=== PATIENT | male | born 1980 | race African-American/Black ===

== ENCOUNTER 2021-08-17 18:30 | Emergency (ER) | payer SELFPAY ==
[~2021-08-17] VITALS: Ht 177.8 cm; Wt 95.0 kg
[2021-08-17] MEDS ORDERED: ONDANSETRON PF 4 MG/2 ML VIAL. IVP ONE (18:45)
[2021-08-17] MEDS ORDERED: IV NORMAL SALINE 1,000ML 1,000 ML IV ONE (18:45)
--- NOTE | 2021-08-17 18:48 | PHYS DOC ---
Past History Additional Past Medical Histor: Gastritis Past Surgical History: No Surgical History General Adult EDM: Chief Complaint: FLANK PAIN HPI: HPI: Patient is a 40-year-old male who presents to the emergency department for right upper quadrant pain that radiates to his right flank that started 5 days ago. Patient rates his pain 10 out of 10. He reports taking a [employer] prior to arrival without relief in his symptoms. Patient reports nausea and vomiting. He denies diarrhea, fevers, dysuria or urinary symptoms. Patient has a history of gastritis. Review of Systems: Review of Systems: Constitutional: See HPI Respiratory: Denies shortness of breath Cardiovascular: Denies chest pain GI: See HPI : See HPI Musculoskeletal: See HPI Physical Exam: PE: Constitutional: Well developed, well nourished, no acute distress, non-toxic appearance. [] HENT: Normocephalic, atraumatic, bilateral external ears normal, oropharynx moist, no oral exudates, nose normal. [] Eyes: PERRL, EOMI, conjunctiva normal, no discharge. [] Neck: Normal range of motion, no tenderness, supple, no stridor. [] Cardiovascular:Heart rate regular rhythm, no murmur [] Lungs & Thorax: Bilateral breath sounds clear to auscultation [] Abdomen: Bowel sounds normal, soft, right upper quadrant tenderness with palpation, no abdominal guarding or rigidity,, no masses, no pulsatile masses. [] Skin: Warm, dry, no erythema, no rash. [] Back: No tenderness, right CVA tenderness Extremities: No tenderness, no cyanosis, no clubbing, ROM intact, no edema. [] Neurologic: Alert and oriented X 3, normal motor function, normal sensory function, no focal deficits noted. [] Psychologic: Affect normal, judgement normal, mood normal. [] Current Patient Data: Labs: Laboratory Tests Test 08/17/21 18:45 08/17/21 18:55 Urine Collection Type Void Urine Color Yellow Urine Clarity Clear Urine pH 6.5 Urine Specific Peck >=1.030 Urine Protein Neg Urine Glucose (UA) Neg mg/dL Urine Ketones (Stick) Neg mg/dL Urine Blood Neg Urine Nitrite Neg Urine Bilirubin Neg Urine Urobilinogen Dipstick 0.2 mg/dL Urine Leukocyte Esterase Neg Urine RBC Occ /HPF Urine WBC Occ /HPF Urine Squamous Epithelial Cells Occ /LPF Urine Bacteria 0 /HPF Urine Mucus Marked /LPF White Blood Count 13.2 x10^3/uL Red Blood Count 5.18 x10^6/uL Hemoglobin 15.5 g/dL Hematocrit 46.8 % Mean Corpuscular Volume 90 fL Mean Corpuscular Hemoglobin 30 pg Mean Corpuscular Hemoglobin Concent 33 g/dL Red Cell Distribution Width 15.5 % Platelet Count 488 x10^3/uL Neutrophils (%) (Auto) 67 % Lymphocytes (%) (Auto) 22 % Monocytes (%) (Auto) 7 % Eosinophils (%) (Auto) 3 % Basophils (%) (Auto) 1 % Neutrophils # (Auto) 8.9 x10^3uL Lymphocytes # (Auto) 3.0 x10^3/uL Monocytes # (Auto) 0.9 x10^3/uL Eosinophils # (Auto) 0.4 x10^3/uL Basophils # (Auto) 0.1 x10^3/uL Sodium Level 139 mmol/L Potassium Level 3.9 mmol/L Chloride Level 102 mmol/L Carbon Dioxide Level 27 mmol/L Anion Gap 10 Blood Urea Nitrogen 11 mg/dL Creatinine 0.9 mg/dL Estimated GFR (Cockcroft-Gault) 113.7 BUN/Creatinine Ratio 12 Glucose Level 91 mg/dL Calcium Level 8.9 mg/dL Total Bilirubin 0.3 mg/dL Aspartate Amino Transf (AST/SGOT) 16 U/L Alanine Aminotransferase (ALT/SGPT) 40 U/L Alkaline Phosphatase 98 U/L Total Protein 7.6 g/dL Albumin 3.5 g/dL Albumin/Globulin Ratio 0.9 Lipase 141 U/L Current Medications Medications (Trade) Dose Ordered Sig/Liam Route PRN Reason Start Time Stop Time Status Last Admin Dose Admin Sodium Chloride 1,000 ml @ 1,000 mls/hr 1X ONCE IV 08/17/21 18:45 08/17/21 19:44 DC 08/17/21 19:06 Ondansetron HCl (Zofran) 4 mg 1X ONCE IVP 08/17/21 18:45 08/17/21 19:05 DC 08/17/21 19:07 Fentanyl Citrate (Fentanyl 2ml Vial) 50 mcg 1X ONCE IVP 08/17/21 18:45 08/17/21 19:05 DC 08/17/21 19:09 Multi-Ingredient Mouthwash/Gargle (Gi Cocktail) 20 ml 1X ONCE PO 08/17/21 20:00 08/17/21 20:01 EKG: EKG: [] Radiology/Procedures: Radiology/Procedures: []PROCEDURE: CT ABDOMEN PELVIS WO CONTRAST Exam: CT of abdomen and pelvis without contrast INDICATION: Right upper quadrant pain, flank pain TECHNIQUE: Sequential axial images through the abdomen and pelvis obtained without IV contrast. Sagittal and coronal reformatted images were reconstructed from the axial data and reviewed. Exposure: One or more of the following in the visualized dose reduction techniques were utilized for this examination: 1. Automated exposure control 2. Adjustment of the MA and/or KV according to patient size 3. Use of iterative of reconstructive technique Comparisons: None FINDINGS: Heart size is normal. No pericardial effusion. Visualized lung bases are clear. No pleural effusion. Evaluation solid organs is limited secondary noncontrast technique. Liver, spleen, pancreas, gallbladder and adrenals are unremarkable. No perinephric inflammation or hydronephrosis. No renal or ureteral calculi are identified. Bladder is decompressed not well evaluated. Prostate is not enlarged. Moderate amount stool in colon. Appendix is normal. Small bowel is unremarkable. No free intra-abdominal air or fluid. No obstruction. Abdominal aorta has normal course and caliber. No enlarged intra-abdominal lymph nodes are identified. No suspicious osseous lesions or acute fractures. IMPRESSION: No acute process identified in the abdomen or pelvis. 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 Risk Scores: Score 0 - 3: 2.5% MACE over next 6 weeks - Discharge Home Score 4 - 6: 20.3% MACE over next 6 weeks - Admit for Clinical Observation Score 7 - 10: 72.7% MACE over next 6 weeks - Early Invasive Strategies Course & Med Decision Making: Course & Med Decision Making Pertinent Labs and Imaging studies reviewed. (See chart for details) [] Patient presents to the emergency department for right upper quadrant pain that radiates to his right flank with nausea. Patient's work-up included blood work including lipase, urinalysis and CT imaging of abdomen and pelvis without contrast due to national shortage. Patient will be treated with IV fluids, nausea and pain medication. Patient's noted to have mild leukocytosis of 13.2 but likely due to nausea and vomiting. Remainder patient's lab work is unremarkable., Urinalysis was unremarkable. CT imaging did not show any acute findings. Patient reports impr ovement in his symptoms following pain medication. He was given GI cocktail as he is likely experiencing an exacerbation of his gastritis. Patient's blood pressure is elevated in the emergency department and at 1 time it was 218/120. No Evidence of endorgan damage. Patient does not have any chest pain or shortness of breath. Patient states that he is on Zestril but has not taken it in a long time. And he recently moved to the area and does not have a primary care provider. Discussed with supervising physician and Patient is given clonidine. Following treatment in the emergency department patient's blood pressure has improved to 169/114. patient was given community resources for For which he can follow-up with. Patient's home medications refilled. He will be discharged home with Pepcid. I discussed with patient all findings and diagnostic testing as well as the need to follow-up with PCP for further evaluation and treatment or return to the ER if any new or worsening symptoms. Strict return precautions were also discussed at length. Patient voiced understanding and agreement with the plan. Patient is hemodynamically stable at the time of disposition. Miya Disclaimer: Miya Disclaimer: This electronic medical record was generated, in whole or in part, using a voice recognition dictation system. Departure Departure: Impression: Primary Impression: Gastritis Qualified Codes: K29.00 - Acute gastritis without bleeding Additional Impression: Hypertension Qualified Codes: I10 - Essential (primary) hypertension Disposition: HOME / SELF CARE / HOMELESS Condition: GOOD Patient Instructions: Gastritis, Adult, Hypertension Additional Instructions: You were seen in the emergency department today for nausea, vomiting and abdominal pain. You are likely experiencing an exacerbation of your gastritis. You are being discharged home with an antacid medication called Pepcid to take. Please avoid any foods that may exacerbate your gastritis. You are also being discharged home with your home hypertensive medications. Please take them as directed. Please follow-up with one of the primary care providers attached to your discharge paperwork. I would advise you to contact them tomorrow to set up a follow-up appointment. Return to the emergency department if you develop chest pain, shortness of breath, high fevers refractory to treatment, abdominal pain, intractable nausea or vomiting, bloody stools or vomit. Scripts Lisinopril (ZESTRIL) 5 Mg Tablet 1 TAB PO DAILY for hypertension for 30 Days, #30 TAB 0 Refills Prov: JOLIE SOLORIO APRN 08/17/21 Famotidine (PEPCID) 20 Mg Tablet 20 MG PO BID for dyspepsia for 7 Days, #14 TAB 0 Refills Prov: JOLIE SOLORIO APRN 08/17/21 JOLIE SOLORIO APRN August 17, 2021 18:48
[2021-08-17 19:28] LABS: BASO # 0.1 x10^3/uL (0.0-0.2); BASO % 1 % (0-3); EOS # 0.4 x10^3/uL (0.0-0.7); EOS % 3 % (0-3); HEMATOCRIT 46.8 % (39.0-53.0); HEMOGLOBIN 15.5 g/dL (13.0-17.5); LYMPH % 22 % (24-48); MEAN CORPUSCULAR HEMOGLOBIN 30 pg (25-35); MEAN CORPUSCULAR HGB CONC 33 g/dL (31-37); MEAN CORPUSCULAR VOLUME 90 fL (79-100); MONO # 0.9 x10^3/uL (0.0-1.1); MONO % 7 % (0-9); NEUT # 8.9 x10^3uL (1.8-7.7); NEUT % 67 % (31-73); PLATELET COUNT 488 x10^3/uL (140-400); RED BLOOD COUNT 5.18 x10^6/uL (4.30-5.70); RED CELL DISTRIBUTION WIDTH 15.5 % (11.5-14.5); WHITE BLOOD COUNT 13.2 x10^3/uL (4.0-11.0)
[2021-08-17 19:29] LABS: CALCIUM 8.9 mg/dL (8.5-10.1); CREATININE 0.9 mg/dL (0.7-1.3); GFR 113.7; POTASSIUM 3.9 mmol/L (3.5-5.1)
[2021-08-17 19:36] LABS: ALBUMIN 3.5 g/dL (3.4-5.0); ALBUMIN/GLOBULIN RATIO 0.9 (1.0-1.7); TOTAL BILIRUBIN 0.3 mg/dL (0.2-1.0); TOTAL PROTEIN 7.6 g/dL (6.4-8.2)
[2021-08-17 19:36] LABS: BACTERIA,URINE 0 /HPF (0-FEW); CLARITY,URINE CLEAR; COLOR,URINE YELLOW; GLUCOSE,URINE NEG (NEG); NITRITE,URINE NEG (NEG); RBC,URINE OCC /HPF (0-2); SQUAMOUS EPITHELIAL CELL,UR OCC /LPF; UROBILINOGEN,URINE 0.2 mg/dL (0.2 mg/dL); WBC,URINE OCC /HPF (0-4)
--- NOTE | 2021-08-17 19:45 | RAD ---
Exam: CT of abdomen and pelvis without contrast INDICATION: Right upper quadrant pain, flank pain TECHNIQUE: Sequential axial images through the abdomen and pelvis obtained without IV contrast. Sagit akil and coronal reformatted images were reconstructed from the axial data and reviewed. Exposure: One or more of the following in the visualized dose reduction techniques were utilized for this examination: 1. Automated exposure control 2. Adjustment of the MA and/or KV according to patient size 3. Use of iterative of reconstructive technique Comparisons: None FINDINGS: Heart size is normal. No pericardial effusion. Visualized lung bases are clear. No pleural effusion. Evaluation solid organs is limited secondary noncontrast technique. Liver, spleen, pancreas, gallbladder and adrenals are unremarkable. No perinephric inflammation or hydronephrosis. No renal or ureteral calculi are identified. Bladder is decompressed not well evaluated. Prostate is not enlarged. Moderate amount stool in colon. Appendix is normal. Small bowel is unremarkable. No free intra-abdomi nal air or fluid. No obstruction. Abdominal aorta has normal course and caliber. No enlarged intra-abdominal lymph nodes are identified. No suspicious osseous lesions or acute fractures. IMPRESSION: No acute process identified in the abdomen or pelvis. Electronically signed by: Jersey Limon MD (08/17/2021 7:43 PM) [facility]
[2021-08-17] MEDS ORDERED: LIDO:MAALOX 1:1 20 ML SINGLE DOSE. PO ONE (20:00)
[2021-08-17] MEDS ORDERED: cloNIDine HCL 0.1 MG TABLET PO ONE (20:00)
[2021-08-17] MEDS ORDERED: LISI-376 PO (20:01)
[2021-08-17] MEDS ORDERED: FAMO-63 PO (20:01)
[2021-08-17] MEDS ORDERED: cloNIDine TTS-1 1 PATCH PATCH TD ONE (20:15)
[2021-08-17 21:45] VITALS: BP 168/114
== END 2021-08-17 21:50 | disposition home or self-care (01) ==
LOC: ER 18:30
DX: K29.70 Gastritis, unspecified, without bleeding (principal); I10 Essential (primary) hypertension
CPT/HCPCS: 36415; 74176; 80053; 81001; 83690; 85025; 87491; 87591; 96361; 96374; 96375; 99284; J2405; J3010; J7030